=== PATIENT | female | born 1975 | race American Indian/Alaskan Native ===

== ENCOUNTER 2017-04-23 12:33 | Emergency (ER) | payer OTHER ==
--- NOTE | 2017-04-23 16:42 | Emergency Department Report ---
ED Lower Extremity HPI - General Chief Complaint: Extremity Injury, Lower Stated Complaint: LEG PAIN Time Seen by Provider: 04/23/17 15:34 Source: patient Mode of arrival: Ambulatory Limitations: No Limitations - History of Present Illness Initial Comments: This is a 41-year-old female nontoxic, well nourished in appearance, no acute signs of distress presents to the ED complaining of Right knee pain 1 month. 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 Patient denies any trauma to the region. Denies any joint swelling or joint redness. Denies any fever, chills, nausea, vomiting, chest pain, short of breath, numbness or tingling. Allergies to codeine, Bactrim. Patient denies any past medical history. MD Complaint: knee injury -: Gradual, month(s) (1) Injury: Knee: Right Place: work Severity: mild Severity scale (0 -10): 6 Improves With: nothing Worsens With: nothing Associated Symptoms: ambulatory. denies: snap/pop sensation, swelling, numbness , tingling, unable to bear weight, able to partially bear weight - Related Data Previous Rx's Medication Instructions Recorded Last Taken Type Ibuprofen [Motrin 600 MG tab] 600 mg PO Q8H PRN #30 tablet 04/23/17 Unknown Rx Allergies Allergy/AdvReac Type Severity Reaction Status Date / Time codeine Allergy Rash Verified 04/23/17 12:53 sulfamethoxazole Allergy Rash Verified 04/23/17 12:53 [From Bactrim] trimethoprim [From Bactrim] Allergy Rash Verified 04/23/17 12:53 ED Review of Systems ROS: Stated complaint: LEG PAIN Other details as noted in HPI Constitutional: denies: chills, fever Eyes: denies: eye pain, eye discharge, vision change ENT: denies: ear pain, throat pain Respiratory: denies: cough, shortness of breath, wheezing Cardiovascular: denies: chest pain, palpitations Endocrine: no symptoms reported Gastrointestinal: denies: abdominal pain, nausea, diarrhea Genitourinary: denies: urgency, dysuria, discharge Musculoskeletal: denies: back pain, joint swelling, arthralgia Skin: denies: rash, lesions Neurological: denies: headache, weakness, paresthesias Psychiatric: denies: anxiety, depression Hematological/Lymphatic: denies: easy bleeding, easy bruising ED Past Medical Hx - Past Medical History Previous Medical History?: No - Surgical History Past Surgical History?: No - Social History Smoking Status: Never Smoker Substance Use Type: Alcohol - Medications Home Medications: Home Medications Medication Instructions Recorded Confirmed Last Taken Type Ibuprofen [Motrin 600 MG tab] 600 mg PO Q8H PRN #30 tablet 04/23/17 Unknown Rx ED Physical Exam - General Limitations: No Limitations General appearance: alert, in no apparent distress - Head Head exam: Present: atraumatic, normocephalic, normal inspection - Eye Eye exam: Present: normal appearance, PERRL, EOMI. Absent: scleral icterus, conjunctival injection, nystagmus, periorbital swelling, periorbital tenderness Pupils: Present: normal accommodation - ENT ENT exam: Present: normal exam, normal orophraynx, mucous membranes moist, TM's normal bilaterally, normal external ear exam - Neck Neck exam: Present: normal inspection, full ROM. Absent: tenderness, meningismus, lymphadenopathy, thyromegaly - Respiratory Respiratory exam: Present: normal lung sounds bilaterally. Absent: respiratory distress, wheezes, rales, rhonchi, stridor, chest wall tenderness, accessory muscle use, decreased breath sounds, prolonged expiratory - Cardiovascular Cardiovascular Exam: Present: regular rate, normal rhythm, normal heart sounds. Absent: bradycardia, tachycardia, irregular rhythm, systolic murmur, diastolic murmur, rubs, gallop - GI/Abdominal GI/Abdominal exam: Present: soft, normal bowel sounds. Absent: distended, tenderness, guarding, rebound, rigid, diminished bowel sounds - Rectal Rectal exam: Present: deferred - Extremities Exam Extremities exam: Present: normal inspection, full ROM, normal capillary refill. Absent: tenderness, pedal edema, joint swelling, calf tenderness - Expanded Lower Extremity Exam Right Hip exam: Present: normal inspection, full ROM Upper Leg exam: Present: normal inspection, full ROM Knee exam: Present: normal inspection, full ROM, full knee extension. Absent: tenderness, swelling, abrasion, laceration, ecchymosis, deformity, crepidus, dislocation, erythema, effusion, pain w/ pronation/supination, posterior draw sign, pain/laxity with valgus, pain/laxity with varus Lower Leg exam: Present: normal inspection, full ROM. Absent: tenderness, swelling, abrasion, laceration, ecchymosis, deformity, crepidus, dislocation, erythema, palpable cord, Mark's sign Ankle exam: Present: normal inspection, full ROM Foot/Toe exam: Present: normal inspection, full ROM Neuro vascular tendon exam: Present: no vascular compromise. Absent: pulse deficit, abnormal cap refill, motor deficit, sensory deficit, tendon deficit, extremity cold to touch, pallor, abnormal 2-point discrimination, decreased fine /light touch, foot drop, peroneal nerve deficit, significant pain with passive ROM of distal joint Gait: Positive: observed and normal - Back Exam Back exam: Present: normal inspection, full ROM. Absent: tenderness, CVA tenderness (R), CVA tenderness (L), muscle spasm, paraspinal tenderness, vertebral tenderness, rash noted - Neurological Exam Neurological exam: Present: alert, oriented X3, CN II-XII intact, normal gait, reflexes normal - Psychiatric Psychiatric exam: Present: normal affect, normal mood - Skin Skin exam: Present: warm, dry, intact, normal color. Absent: rash ED Course Vital Signs 04/23/17 12:53 Temperature 98.1 F Pulse Rate 78 Respiratory 18 Rate Blood Pressure 150/96 O2 Sat by Pulse 100 Oximetry - Reevaluation(s) Reevaluation #1: 04/23/17 16:41 Patient is speaking in full sentences with no signs of distress noted. ED Lower Extremity MDM - Radiology Data Radiology results: report reviewed interpreted by me: Dictated by radiologist Normal examination - Medical Decision Making 41-year-old female that presents with right knee strain. Patient was examined by me and patient is stable.x-ray has been obtained of the right knee and Dictated by radiologist with negative findings of any abnormalities, fractures or dislocation. patient was notified of x-ray results with no further questions nor by the patient. patient received Toradol 30 mg IM in the ED which patient stated his symptoms are improving and subsiding. patient received a knee immobilizer . Patient was instructed to follow-up with a orthopedic doctorin 3- 5 days or if symptoms worsen and continue return to emergency room as soon as possible possible. Patient is hemodynamically stable with stable vital signs. Patient states he is feeling better. At time time of discharge, the patient does not seem toxic or ill in appearance. No acute signs of distress noted. Patient agrees to discharge treatment plan of care. No further questions noted by the patient. Critical care attestation.: If time is entered above; I have spent that time in minutes in the direct care of this critically ill patient, excluding procedure time. ED Disposition Clinical Impression: Knee pain Qualifiers: Chronicity: acute Laterality: right Qualified Code(s): M25.561 - Pain in right knee Disposition: TO HOME OR SELFCARE Is pt being admited?: No Does the pt Need Aspirin: No Condition: Stable Instructions: Knee Pain (ED), Knee Immobilizer (ED), Ibuprofen (By mouth) Additional Instructions: follow-up with a orthopedic doctor in 3-5 days or if symptoms worsen and continue return to emergency room as soon as possible possible. Prescriptions: Ibuprofen [Motrin 600 MG tab] 600 mg PO Q8H PRN #30 tablet PRN Reason: Pain Referrals: PRIMARY CAREMD [Primary Care Provider] - 3-5 Days DEVAN BAÑUELOS MD [Staff Physician] - 3-5 Days [facility] [Outside] - 3-5 Days [facility] [Outside] - 3-5 Days Forms: Work/School Release Form(ED)
[2017-04-23] MEDS: TORADOL IM ONE (18:12)
--- NOTE | 2017-04-23 18:21 | XRay Report ---
FINAL REPORT PROCEDURE: Right knee. TECHNIQUE: Portable three views. HISTORY: Right knee pain. COMPARISON: No prior studies are available for comparison. FINDINGS: The bones appear intact without fracture or dislocation. The joint spaces appear satisfactory. The soft tissues are unremarkable. There is no evidence of a knee effusion. IMPRESSION: No significant abnormality.
[2017-04-23 18:58] VITALS: BP 142/90
== END 2017-04-23 18:57 | disposition home or self-care (01) ==
LOC: ED 12:33
DX: M25.561 Pain in right knee (principal); Z88.6 Allergy status to analgesic agent; Z88.1 Allergy status to other antibiotic agents
CPT/HCPCS: 29505; 73562; 96372; 99283; J1885

== ENCOUNTER 2017-07-13 09:07 | Emergency (ER) | payer OTHER ==
[2017-07-13] MEDS ORDERED: TYLENOL PO ONE (09:19)
[2017-07-13] MEDS ORDERED: TYLENOL ONE (09:20)
[2017-07-13 13:41] VITALS: BP 123/88
--- NOTE | 2017-07-13 14:27 | Emergency Department Report ---
Minor Respiratory - HPI Chief Complaint: Upper Respiratory Infection Stated Complaint: FLU LIKE SYMPTOMS Time Seen by Provider: 07/13/17 12:33 Duration: 2 Days Pain Location: Throat Severity: mild Minor Respiratory: Yes Rhinorrhea, Yes Sore Throat, Yes Able to Tolerate Fluids , Yes Cough, Yes Sick Contacts, Yes Fever, No Ear Pain, No Hemoptysis, No Chest Pain, No Shortness of Breath Other History: This is a 41 y.o. female presents with sore throat, cough, headache, fever, and sinus pressrue for 2 days. 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 She didn't get a flu shot this year but feel like she may have the flu. Denies muscle aches, chest pain, and SOB. ED Review of Systems ROS: Stated complaint: FLU LIKE SYMPTOMS Other details as noted in HPI Constitutional: no symptoms reported, see HPI, chills, fever. denies: diaphoresis, malaise, weakness Eyes: denies: eye pain, eye discharge, vision change ENT: congestion. denies: ear pain, throat pain Respiratory: see HPI, cough. denies: orthopnea, shortness of breath, SOB with exertion, SOB at rest, stridor, wheezing Cardiovascular: denies: chest pain, palpitations, dyspnea on exertion, orthopnea Gastrointestinal: denies: abdominal pain, nausea, diarrhea Musculoskeletal: denies: back pain, joint swelling, arthralgia Neurological: denies: headache, weakness, paresthesias ED Past Medical Hx - Past Medical History Previous Medical History?: Yes Additional medical history: strept throat - Surgical History Past Surgical History?: No - Social History Smoking Status: Never Smoker Substance Use Type: Alcohol, Non Opiate Pain - Medications Home Medications: Home Medications Medication Instructions Recorded Confirmed Last Taken Type Ibuprofen [Motrin 600 MG tab] 600 mg PO Q8H PRN #30 tablet 04/23/17 Unknown Rx Amoxicillin/Potassium Clav 1 each PO BID 5 Days #10 tablet 07/13/17 Unknown Rx [Augmentin 875-125 Tablet] Benzonatate 200 mg PO TID PRN #30 capsule 07/13/17 Unknown Rx Fluticasone [Flonase] 1 spray NS QDAY #1 bottle 07/13/17 Unknown Rx Minor Respiratory Exam - Exam General: Vital signs noted. No distress. Alert and acting appropriately. HEENT: Yes Pharyngeal Erythema, Yes Moist Mucous Membranes, Yes Rhinorrhea, Yes Frontal Tenderness, No Pharyngeal Exudates, No Conjuctival Injection, No Maxillary Tenderness Ear: Neither TM Bulge, Neither TM Erythema, Neither EAC Pain, Neither EAC Discharge Neck: Yes Supple, No Adenopathy Lungs: Yes Good Air Exchange, Yes Cough, No Wheezes, No Ronchi, No Stridor, No Labored Respirations, No Retractions, No Use of Accessory Muscles, No Other Abnormal Lung Sounds Heart: Yes Regular, No Murmur Abdomen: Yes Normal Bowel Sounds, No Tenderness, No Peritoneal Signs Skin: No Rash, No Edema Neurologic: Alert and oriented, no deficits. Musculoskeletal: Unremarkable. ED Course Vital Signs 07/13/17 07/13/17 09:11 13:38 Temperature 101.4 F H 97.7 F Pulse Rate 119 H 101 H Respiratory 20 16 Rate Blood Pressure 131/86 Blood Pressure 123/88 [Right] O2 Sat by Pulse 99 100 Oximetry ED Medical Decision Making - Medical Decision Making 41 y.o. female presents with flu like symptoms. Given tylenol 650 mg po once. Temp lowered, HR 101 Started on flonase, benzonatate, and augmentin. Continue OTC decongestants. Pain and fever should improve in 2 to 3 days. Nasal obstruction and drainage may take a week or more to improve. Avoid cigarette smoke, environmental pollutants and allergens, alcohol, and air travel. Steam inhalation and warm facial packs may be helpful. Get adequate sleep and hydration. Follow up with primary care if symptoms are not improved as expected. Critical care attestation.: If time is entered above; I have spent that time in minutes in the direct care of this critically ill patient, excluding procedure time. ED Disposition Clinical Impression: Sinusitis Qualifiers: Sinusitis location: frontal Chronicity: acute Recurrence: non-recurrent Qualified Code(s): J01.10 - Acute frontal sinusitis, unspecified Disposition: - TO HOME OR SELFCARE Is pt being admited?: No Does the pt Need Aspirin: No Condition: Stable Instructions: Sinusitis (ED) Additional Instructions: Pain and fever should improve in 2 to 3 days. Nasal obstruction and drainage may take a week or more to improve. Avoid cigarette smoke, environmental pollutants and allergens, alcohol, and air travel. Steam inhalation and warm facial packs may be helpful. Get adequate sleep and hydration. Follow up with primary care if symptoms are not improved as expected. Prescriptions: Amoxicillin/Potassium Clav [Augmentin 875-125 Tablet] 1 each PO BID 5 Days #10 tablet Benzonatate 200 mg PO TID PRN #30 capsule PRN Reason: Cough Fluticasone [Flonase] 1 spray NS QDAY #1 bottle Referrals: DR ROSIE [Other] - 3-5 Days [facility] [Outside] - 3-5 Days [facility] [Outside] - 3-5 Days Time of Disposition: 14:39 Print Language: SETSWANA
== END 2017-07-13 14:51 | disposition home or self-care (01) ==
LOC: ED 09:07
DX: J01.10 Acute frontal sinusitis, unspecified (principal); Z88.5 Allergy status to narcotic agent; Z88.2 Allergy status to sulfonamides
CPT/HCPCS: 87116; 87400; 87430; 99283

== ENCOUNTER 2017-07-29 09:56 | Emergency (ER) | payer OTHER ==
[2017-07-29] MEDS ORDERED: MOTRIN PO ONE (17:11)
[2017-07-29] MEDS ORDERED: TESSALON PERLES PO ONE (17:11)
--- NOTE | 2017-07-29 17:31 | Emergency Department Report ---
- General Chief Complaint: Upper Respiratory Infection Stated Complaint: SICK Time Seen by Provider: 07/29/17 15:40 Source: patient Mode of arrival: Ambulatory Limitations: No Limitations - History of Present Illness Initial Comments: This is a 41-year-old female nontoxic, well nourished in appearance, no acute signs of distress presents to the ED with c/o of nonproductive cough, rhinorrhea , nasal congestion and sinus headache 2 weeks. Initially she was here 2 weeks ago and diagnosed with sinus infection and has been taking Augmentin and pressure through his symptoms has not been relieved. Patient denies any fever, chills, nausea, vomiting, headache, stiff neck, numbness, tingling, chest pain or shortness of breath. Patient states allergies to Bactrim and codeine. Denies past medical history. Patient denies any recent travels, long car rides or recent hospital stays. Patient denies any calf pain or calf tenderness. MD Complaint: cough, rhinorrhea, nasal congestion, sinus pain -: week(s) (2) Severity: mild Severity scale (0 -10): 8 Quality: aching Consistency: constant Improves With: nothing Worsens With: nothing Associated Symptoms: headache (frontal sinus pain), rhinorrhea, nasal congestion , cough. denies: fever, chills, myalgias, diaphoresis, sore throat, stiff neck , chest pain, shortness of breath, abdominal pain, nausea, vomiting, diarrhea, dysuria, rash, confusion, right sweats, weight loss, epistaxis, hoarseness, ear pain Treatments Prior to Arrival: none - Related Data Previous Rx's Medication Instructions Recorded Last Taken Type Ibuprofen [Motrin 600 MG tab] 600 mg PO Q8H PRN #30 tablet 04/23/17 Unknown Rx Amoxicillin/Potassium Clav 1 each PO BID 5 Days #10 tablet 07/13/17 Unknown Rx [Augmentin 875-125 Tablet] Benzonatate 200 mg PO TID PRN #30 capsule 07/13/17 Unknown Rx Fluticasone [Flonase] 1 spray NS QDAY #1 bottle 07/13/17 Unknown Rx Butalb/Acetamin/Caff 50-325-40 1 tab PO Q6HR PRN #30 tab 07/29/17 Unknown Rx [Fioricet] Levofloxacin [Levaquin TAB] 750 mg PO QDAY #7 tablet 07/29/17 Unknown Rx Allergies Allergy/AdvReac Type Severity Reaction Status Date / Time codeine Allergy Rash Verified 07/29/17 10:53 sulfamethoxazole Allergy Rash Verified 07/29/17 10:53 [From Bactrim] trimethoprim [From Bactrim] Allergy Rash Verified 07/29/17 10:53 ED Review of Systems ROS: Stated complaint: SICK Other details as noted in HPI Constitutional: denies: chills, fever Eyes: denies: eye pain, eye discharge, vision change ENT: denies: ear pain, throat pain Respiratory: cough. denies: shortness of breath, wheezing Cardiovascular: denies: chest pain, palpitations Endocrine: no symptoms reported Gastrointestinal: denies: abdominal pain, nausea, diarrhea Genitourinary: denies: urgency, dysuria, discharge Musculoskeletal: denies: back pain, joint swelling, arthralgia Skin: denies: rash, lesions Neurological: denies: headache, weakness, paresthesias Psychiatric: denies: anxiety, depression Hematological/Lymphatic: denies: easy bleeding, easy bruising ED Past Medical Hx - Past Medical History Additional medical history: strept throat - Social History Smoking Status: Never Smoker Substance Use Type: None - Medications Home Medications: Home Medications Medication Instructions Recorded Confirmed Last Taken Type Ibuprofen [Motrin 600 MG tab] 600 mg PO Q8H PRN #30 tablet 04/23/17 Unknown Rx Amoxicillin/Potassium Clav 1 each PO BID 5 Days #10 tablet 07/13/17 Unknown Rx [Augmentin 875-125 Tablet] Benzonatate 200 mg PO TID PRN #30 capsule 07/13/17 Unknown Rx Fluticasone [Flonase] 1 spray NS QDAY #1 bottle 07/13/17 Unknown Rx Butalb/Acetamin/Caff 50-325-40 1 tab PO Q6HR PRN #30 tab 07/29/17 Unknown Rx [Fioricet] Levofloxacin [Levaquin TAB] 750 mg PO QDAY #7 tablet 07/29/17 Unknown Rx ED Physical Exam - General Limitations: No Limitations General appearance: alert, in no apparent distress - Head Head exam: Present: atraumatic, normocephalic, normal inspection - Eye Eye exam: Present: normal appearance, PERRL, EOMI. Absent: scleral icterus, conjunctival injection, nystagmus, periorbital swelling, periorbital tenderness Pupils: Present: normal accommodation - ENT ENT exam: Present: normal exam, normal orophraynx, mucous membranes moist, TM's normal bilaterally, normal external ear exam - Neck Neck exam: Present: normal inspection, full ROM. Absent: tenderness, meningismus, lymphadenopathy, thyromegaly - Respiratory Respiratory exam: Present: normal lung sounds bilaterally. Absent: respiratory distress, wheezes, rales, rhonchi, stridor, chest wall tenderness, accessory muscle use, decreased breath sounds, prolonged expiratory - Cardiovascular Cardiovascular Exam: Present: regular rate, normal rhythm, normal heart sounds. Absent: irregular rhythm, systolic murmur, diastolic murmur, rubs, gallop - GI/Abdominal GI/Abdominal exam: Present: soft, normal bowel sounds. Absent: distended, tenderness, guarding, rebound, rigid, diminished bowel sounds - Rectal Rectal exam: Present: deferred - Extremities Exam Extremities exam: Present: normal inspection, full ROM, normal capillary refill. Absent: tenderness, pedal edema, joint swelling, calf tenderness - Back Exam Back exam: Present: normal inspection, full ROM. Absent: tenderness, CVA tenderness (R), CVA tenderness (L), muscle spasm, paraspinal tenderness, vertebral tenderness, rash noted - Neurological Exam Neurological exam: Present: alert, oriented X3, CN II-XII intact, normal gait, reflexes normal - Psychiatric Psychiatric exam: Present: normal affect, normal mood - Skin Skin exam: Present: warm, dry, intact, normal color. Absent: rash - Other Other exam information: Positive frontal sinus tenderness. ED Course Vital Signs 07/29/17 07/29/17 07/29/17 10:53 15:57 17:39 Temperature 98.8 F 99.7 F H Pulse Rate 99 H 111 H Respiratory 20 18 20 Rate Blood Pressure 151/92 144/97 O2 Sat by Pulse 100 100 Oximetry - Reevaluation(s) Reevaluation #1: 07/29/17 17:33 Patient is speaking in full sentences with no signs of distress noted. ED Medical Decision Making - Medical Decision Making This is a 41-year-old female that presents with sinusitis and URI. Patient is stable and was examined by me. Chest xray has been obtained and dictated by radiologis. Patient is notified of xray results with no questions noted by the patient. Influenza swab has been obtained and negative. Patient received Tessalon Perle and ED which stated his symptoms is improving of cough. I will treat patient empirically with levo due to failure treatment and symptoms being 2 weeks and is worsening. Wells criteria 0 points. Patient was instructed to rest and hydration. Vital signs are stable before discharge. Patient was instructed Follow-up with a primary care doctor in 3-5 days or if symptoms worsen and continue return to emergency room as soon as possible. At time time of discharge, the patient does not seem toxic or ill in appearance. No acute signs of distress noted. Patient agrees to discharge treatment plan of care. No further questions noted by the patient. Critical care attestation.: If time is entered above; I have spent that time in minutes in the direct care of this critically ill patient, excluding procedure time. ED Disposition Clinical Impression: Sinusitis Qualifiers: Sinusitis location: frontal Chronicity: chronic Qualified Code(s): J32.1 - Chronic frontal sinusitis Upper respiratory infection Qualifiers: URI type: unspecified URI Qualified Code(s): J06.9 - Acute upper respiratory infection, unspecified Disposition: DC-01 TO HOME OR SELFCARE Is pt being admited?: No Does the pt Need Aspirin: No Condition: Stable Instructions: Butalbital/Aspirin/Caffeine (By mouth), Levofloxacin (By mouth), Sinusitis (ED), Upper Respiratory Infection (ED) Additional Instructions: Follow-up with a primary care doctor in 3-5 days or if symptoms worsen and continue return to emergency room as soon as possible. Increase rest and hydration. Prescriptions: Butalb/Acetamin/Caff 50-325-40 [Fioricet] 1 tab PO Q6HR PRN #30 tab PRN Reason: Headache Levofloxacin [Levaquin TAB] 750 mg PO QDAY #7 tablet Referrals: PRIMARY CARE, [Primary Care Provider] - 3-5 Days LUCILA ALCARAZ MD [Staff Physician] - 3-5 Days [facility] [Outside] - 3-5 Days [facility] [Outside] - 3-5 Days Forms: Work/School Release Form(ED)
--- NOTE | 2017-07-29 18:47 | XRay Report ---
FINAL REPORT PROCEDURE: XR CHEST ROUTINE 2V TECHNIQUE: AP and lateral chest radiographs were obtained. CPT 35134 HISTORY: cough COMPARISON: No prior studies are available for comparison. FINDINGS: Heart: Upper normal size. Mediastinum/Vessels: Normal. Lungs/Pleural space: Normal. Bony thorax: No acute osseous abnormality. Other: IMPRESSION: Negative examination.
[2017-07-29 19:13] VITALS: BP 124/79
== END 2017-07-29 19:24 | disposition home or self-care (01) ==
LOC: ED 09:56
DX: J32.1 Chronic frontal sinusitis (principal); J06.9 Acute upper respiratory infection, unspecified
CPT/HCPCS: 71046; 87400

== ENCOUNTER 2019-05-05 06:45 | Day surgery (SDC) | payer OTHER ==
[2019-05-05] MEDS ORDERED: SODIUM CHLORIDE 0.9% 1000 ML 1,000 ML ONE (07:39)
[2019-05-05] MEDS ORDERED: PROPOFOL 200 MG/20 ML VIAL IV ONE ×2 (07:47)
[2019-05-05] MEDS ORDERED: LIDOCAINE (2%) 20 MG/1 ML VIAL 20 ML MDV INFILTRATI ONE (07:47)
--- NOTE | 2019-05-05 07:50 | Anesthesia Consultation ---
Anesthesia Consult and Med Hx Date of service: 05/05/19 - Airway Anesthetic Teeth Evaluation: Good ROM Head & Neck: Adequate Mental/Hyoid Distance: Adequate Mallampati Class: Class II Intubation Access Assessment: Probably Good - Pre-Operative Health Status ASA Pre-Surgery Classification: ASA2 Proposed Anesthetic Plan: MAC - Pulmonary Hx Smoking: No Hx Asthma: No Hx Respiratory Symptoms: No SOB: No COPD: No Home Oxygen Therapy: No Hx Pneumonia: No Hx Sleep Apnea: Yes - Cardiovascular System Hx Hypertension: No Hx Coronary Artery Disease: No Hx Heart Attack/AMI: No Hx Angina: No Hx Percutaneous Transluminal Coronary Angioplasty (PTCA): No Hx Cardia Arrhythmia: No Hx Pacemaker: No Hx Internal Defibrillator: No Hx Valvular Heart Disease: No Hx Heart Murmur: No Hx Peripheral Vascular Disease: No - Central Nervous System Hx Neuromuscular Disorder: No Hx Seizures: No CVA: No Hx Back Pain: No Hx Psychiatric Problems: No - Gastrointestinal Hx Ulcer: No Hx Gastroesophageal Reflux Disease: No - Endocrine Hx Renal Disease: No Hx End Stage Renal Disease: No Hx Cirrhosis: No Hx Liver Disease: No Hx Insulin Dependent Diabetes: No Hx Non-Insulin Dependent Diabetes: No Hx Thyroid Disease: No Hx Hypothyroidism: No Hx Hyperthyroidism: No - Hematic Hx Anemia: No Hx Sickle Cell Disease: No - Other Systems Hx Alcohol Use: No Hx Substance Use: No Hx Cancer: No Hx Obesity: Yes
--- NOTE | 2019-05-05 07:51 | Anesthesia Day of Surgery ---
Anesthesia Day of Surgery - Day of Surgery Patient Examined: Yes Patient H&P Reviewed: Yes Patient is NPO: Yes Beta Blockers: No
[2019-05-05] MEDS ORDERED: WATER FOR IRRIG STERILE 250 ML BOTTLE IR ONE (08:07)
[2019-05-05] MEDS ORDERED: WATER FOR IRRIG STERILE 1,000 ML BOTTLE ONE (08:07)
--- NOTE | 2019-05-05 08:48 | Short Stay Summary ---
Short Stay Documentation Date of service: 05/05/19 Narrative H&P: The patient presents for diagnostic colonoscopy for LLQ pain, abnormal CT scan suggesting diverticulitis - History Past Medical History: No medical history Past Surgical History: No surgical history Social history: no significant social history, no smoking, no alcohol abuse - Allergies and Medications Current Medications: Allergies codeine Allergy (Verified 07/29/17 10:53) Rash sulfamethoxazole [From Bactrim] Allergy (Verified 07/29/17 10:53) Rash trimethoprim [From Bactrim] Allergy (Verified 07/29/17 10:53) Rash Home Medications Medication Instructions Recorded Confirmed Last Taken Type Ibuprofen [Motrin 600 MG tab] 600 mg PO Q8H PRN #30 tablet 04/23/17 Unknown Rx Amoxicillin/Potassium Clav 1 each PO BID 5 Days #10 tablet 07/13/17 Unknown Rx [Augmentin 875-125 Tablet] Benzonatate 200 mg PO TID PRN #30 capsule 07/13/17 Unknown Rx Fluticasone [Flonase] 1 spray NS QDAY #1 bottle 07/13/17 Unknown Rx Butalb/Acetamin/Caff 50-325-40 1 tab PO Q6HR PRN #30 tab 07/29/17 Unknown Rx [Fioricet] levoFLOXacin [Levaquin TAB] 750 mg PO QDAY #7 tablet 07/29/17 Unknown Rx Active Medications Sodium Chloride (Nacl 0.9% 1000 Ml) 1,000 mls @ 50 mls/hr IV DIRECT WILIAM - Physical exam General appearance: no acute distress, well-nourished Integumentary: no rash, no growths, no abnormal pigmentation HEENT: Atraumatic, PERRLA, EOMI, Mucous membr. moist/pink Lungs: Clear to auscultation, Normal air movement Breasts: deferred Heart: Regular rate, Normal S1, Normal S2, No murmurs Gastrointestinal: normoactive bowel sounds, no tenderness, no distended, no masses, no organomegaly, no obese Female Genitourinary: deferred Rectal Exam: normal exam-external/orifice, no tenderness, no mass Extremities: no ischemia, pulses intact, pulses symmetrical, No edema, normal temperature, normal color, Full ROM Neurological: Normal gait, Normal speech, Strength at 5/5 X4 ext, Normal tone, Sensation intact, Cranial nerves 3-12 NL - Brief post op/procedure progress note Date of procedure: 05/05/19 Findings: report dictated Estimated blood loss: none Pathology: none Condition: stable - Disposition Condition at discharge: Good Disposition: DC-01 TO HOME OR SELFCARE - Discharge Diagnoses (1) LLQ abdominal pain Status: Acute (2) Abnormal abdominal CT scan Status: Acute Short Stay Discharge Plan Activity: other (no driving for 24 hours) Weight Bearing Status: Full Weight Bearing Diet: regular Follow up with: VALENTE MARINO MD [Primary Care Provider] - 7 Days
--- NOTE | 2019-05-05 08:51 | Operative Report ---
Operative Report Operative Report: Date of procedure: 05/05/2019 Preprocedure diagnosis: Left lower quadrant pain, abnormal CT scan revealing jang spected diverticulitis. Family history of colon polyps. Post procedure diagnosis: Moderate diverticulosis throughout the colon, no evidence of neoplasia. Procedure: Colonoscopy to the cecum Endoscopist: Dr. Schmitz Anesthesia: Monitored anesthesia care per anesthesia department Estimated blood loss: 0 Medications: Monitored anesthesia care. See separate report by anesthesia for details. After careful discussion of the nature and purpose of the procedure as well as details of the technique risks benefits and alternatives the patient gave consent. Please see recent history and physical from the office. The patient was placed in the left lateral decubitus position and medicated per anesthesia. A rectal exam was performed sphincter tone was normal there were no masses palpable. The Olympus colonoscope was passed transanally and advanced under continuous direct vision without difficulty to the cecum. The colon was well prepared. The cecum was normal. The ascending colon reveal scattered diverticula, but otherwise was normal and on forward and retroflexed views. The transverse colon, descending colon, and sigmoid colon revealed scattered diverticula, more concentrated in the descending colon. The rectum was normal on forward and retroflexed views. The procedure was well-tolerated overall and the patient was observed in recovery. Conclusions: Diverticulosis-moderate throughout the colon. Plan: Avoid NSAIDs. Repeat colonoscopy in 5 years in light of family history of colon polyps. Signed electronically: Rolando Schmitz M.D.
[2019-05-05] MEDS ORDERED: SODIUM CHLORIDE 0.9% 1000 ML 1,000 ML IV SCH (09:00)
[2019-05-05 09:18] VITALS: BP 123/78
--- NOTE | 2019-05-05 10:01 | Post Anesthesia Evaluation ---
- Post Anesthesia Evaluation Patient Participated: Yes Airway Patent: Yes Stable Respiratory Function: Yes Nausea/Vomiting: No Temp > 96.8F: Yes Pain Manageable: Yes Adequeate Hydration: Yes Anesthesia Complications: No Block Receding Appropriately: Not Applicable Patient on Ventilator: No
== END 2019-05-05 06:46 | disposition home or self-care (01) ==
LOC: GIO 06:45
PROVIDERS: ATTEND Internal Medicine Gastroenterology
DX: R10.32 Left lower quadrant pain (principal); K59.00 Constipation, unspecified; K57.30 Diverticulosis of large intestine without perforation or abscess without bleeding; G47.30 Sleep apnea, unspecified; E66.9 Obesity, unspecified; Z83.71 Family history of colonic polyps; Z79.899 Other long term (current) drug therapy; Z88.5 Allergy status to narcotic agent; Z88.2 Allergy status to sulfonamides; Z88.8 Allergy status to other drugs, medicaments and biological substances; Z68.35 Body mass index [BMI] 35.0-35.9, adult
CPT/HCPCS: 45378; 81025; J2704; J7030